=== PATIENT | female | born 1950 | race Caucasian/White ===

== ENCOUNTER 2023-03-28 12:16 | Emergency (ER) | payer OTHER ==
[~2023-03-28] VITALS: Ht 167.6 cm; Wt 64.4 kg
--- NOTE | 2023-03-28 12:35 | NUR ---
pt was brought in due to chest pain after lifting a box. RESCUE GAVE HER NITRO AND ASPIRIN. PAIN WAS NON RADIATING, NOT IN CR DISTRESS. AT ER SHE COMPLAINS OF PAIN 4-5/10 LOCATED AT HER LOWER RIB CAGE.PT WAS PUT ON MONITOR AND PULSE. MADE PT COMFORTABLE. AT BEDSIDE FOR ADY
[2023-03-28 12:55] LABS: BASOPHILS # (AUTO) 0.1 K/uL (0.0-0.2); BASOPHILS % (AUTO) 0.9 % (0.0-2.0); EOSINOPHILS % (AUTO) 2.6 % (0.0-6.0); HEMATOCRIT 45 % (33-45); HEMOGLOBIN 14.2 g/dL (11.5-14.8); LYMPHOCYTES # (AUTO) 2.7 K/uL (0.8-4.8); LYMPHOCYTES % (AUTO) 30.7 % (20.0-44.0); MEAN CORPUSCULAR HGB CONC 32 g/dl (31.0-36.0); MEAN CORPUSCULAR VOLUME 91 fL (82-100); MONOCYTES # (AUTO) 0.7 K/uL (0.1-1.30); MONOCYTES % (AUTO) 8.3 % (2.0-12.0); NEUTROPHILS # (AUTO) 5.1 K/uL (1.8-8.9); NEUTROPHILS % (AUTO) 57.5 % (43.0-81.0); PLATELET COUNT (AUTO) 199 K/uL (150-450); RED BLOOD CELL COUNT(AUTO) 4.91 MIL/uL (4.0-5.2); WHITE BLOOD COUNT (AUTO) 8.8 K/uL (4.3-11.0)
--- NOTE | 2023-03-28 12:57 | NUR ---
covid swab done sent to lab
[2023-03-28] MEDS ORDERED: MONT10TA22 PO (13:25)
[2023-03-28] MEDS ORDERED: ALBU18HF2 IH (13:25)
[2023-03-28] MEDS ORDERED: LOSA50TA39 PO (13:25)
[2023-03-28] MEDS ORDERED: ROSU5TAB13 PO (13:25)
--- NOTE | 2023-03-28 13:27 | NUR ---
[facility]
[2023-03-28 13:46] LABS: ALANINE AMINOTRANSFERASE 19 U/L (12-78); ALBUMIN 3.8 g/dL (3.4-5.0); ALKALINE PHOSPHATASE 83 U/L (46-116); ASPARTATE AMINOTRANSFERASE 21 U/L (15-37); BILIRUBIN,DIRECT 0.1 mg/dL (0.0-0.2); BILIRUBIN,TOTAL 0.4 mg/dL (0.2-1.0); CALCIUM, SERUM 9.5 mg/dL (8.5-10.1); GLUCOSE 99 mg/dL (74-106); TOTAL PROTEIN, SERUM 7.5 g/dL (6.4-8.2); UREA NITROGEN, BLOOD 15 mg/dL (7-18)
[2023-03-28 13:50] LABS: CARBON DIOXIDE 27 mmol/L (21-32); CHLORIDE 101 mmol/L (98-107); POTASSIUM 4.7 mmol/L (3.5-5.1); SODIUM SERUM 136 mmol/L (136-145)
--- NOTE | 2023-03-28 14:06 | NUR ---
CALLED [facility] [phone] DR. ROBBY Witt WILL CALL US BACK.
--- NOTE | 2023-03-28 14:39 | NUR ---
PT ACCEPTED TO [facility] IN [place] UNDER DR. HUNTER Crowe. PLEASE CALL [phone] TRANSPORT WITH [facility] ETA 1600 [address].
--- NOTE | 2023-03-28 16:02 | NUR ---
REPORT GIVEN TO ER CHARGE NURSE IN [facility]
--- NOTE | 2023-03-28 16:47 | NUR ---
TRANSPORT AT BEDSIDE FOR PICKUP
[2023-03-28 17:28] VITALS: BP 145/81
== END 2023-03-28 17:29 | disposition short-term general hospital (02) ==
LOC: ER 12:26
DX: R07.89 Other chest pain (principal); Z79.899 Other long term (current) drug therapy; Z20.822 Contact with and (suspected) exposure to COVID-19
CPT/HCPCS: 99285; 71045; 87426; 93005; 85025; 80048; 80076; 36415; 84484 ×2; A6403; C9803